=== PATIENT | female | born 1985 | race Caucasian/White ===

== ENCOUNTER 2017-11-21 01:14 | Emergency (ER) | payer MEDICAID ==
[~2017-11-21] VITALS: Ht 154.9 cm; Wt 54.4 kg
[2017-11-21 01:20] VITALS: BP 139/88
== END 2017-11-21 01:37 | disposition home or self-care (01) ==
LOC: ER 01:19
DX: J06.9 Acute upper respiratory infection, unspecified (principal); M06.9 Rheumatoid arthritis, unspecified; J45.909 Unspecified asthma, uncomplicated
CPT/HCPCS: A4606; Z7502; Z7610